=== PATIENT | female | born 1990 | race African-American/Black ===

== ENCOUNTER 2016-07-02 14:00 | Emergency (ER) | payer MEDICAID ==
[~2016-07-02] VITALS: Ht 170.2 cm; Wt 86.0 kg
[2016-07-02 14:02] VITALS: BP 122/80; PULSE 73; RESP 16; TEMP 98; O2SAT 99
--- NOTE | 2016-07-02 14:11 | PD ---
Physical Exam Date Seen by Provider: Jul 02, 2016 Time Seen by Provider: 14:09 Narrative 25 YOBF C/O L THROBBING FACIAL PAIN FOR 2 WEEKS. NO D/C,F/C,DENTAL PAIN VSS AWAITING BED PLACEMENT Data Data Last Documented VS Vital Signs Date Time Temp Pulse Resp B/P Pulse Ox O2 Delivery O2 Flow Rate FiO2 07/02/16 14:02 98.0 73 16 122/80 99 MDM Medical Record Reviewed: Yes Supervised Visit with SHELLI: Yes Kirk Leyva Jul 02, 2016 14:10
[2016-07-02] MEDS ORDERED: AZIT500T2 PO (14:18)
[2016-07-02] MEDS ORDERED: IBUP800T23 PO (14:19)
--- NOTE | 2016-07-02 14:19 | PD ---
HPI Chief Complaint: ENT Complaint Time Seen by Provider: 14:17 Travel History International Travel<30 days: No Contact w/Intl Traveler<30days: No Traveled to known affect area: No History of Present Illness HPI 25-year-old female presents emergency Department with complaint of left hip pain 2 weeks. Denies fever, chills, nausea, vomiting. Denies throat pain, nasal congestion, cough. Denies drainage from the ear. Has tried taking Aleve with no relief of symptoms. No known aggravating or relieving factors. Allergies to amoxicillin, penicillin. No other modifying factors or associated signs and symptoms. PFSH Past Medical History Diminished Hearing: No Migraines: Yes ?: Not LMP: MURENA : 1 Para: 1 Social History Alcohol Use: No Tobacco Use: No Substance Use: No Allergies-Medications (Allergen,Severity, Reaction): Coded Allergies: Amoxicillin (Verified Allergy, Severe, HIVES, 07/02/16) Penicillin (Verified Allergy, Severe, 07/02/16) Reported Meds & Prescriptions Reported Meds & Active Scripts Active Ibuprofen 800 Mg Tab 800 Mg PO Q6HR PRN Azithromycin 500 Mg Tab 500 Mg PO DAILY Review of Systems Except as stated in HPI: all other systems reviewed are Neg Physical Exam Narrative GENERAL: Well-nourished, well-developed patient, in no acute distress; afebrile , nontoxic-appearing SKIN: Warm and dry. No rash. HEAD: Atraumatic. Normocephalic. EYES: Pupils equal and round at 3 mm with brisk reaction. No scleral icterus. No injection or drainage. PERRLA. EARS: Bilateral pinnae and external canals appear within normal limits. Left tympanic membranes with erythema , loss of land simms, dullness; without perforation. Right tympanic membrane is without erythema or dullness. ENT: Mucosa pink and moist. Pharynx without erythema, edema or exudates. No uvular edema. No uvular, palatal, or tonsillar deviation. Airway patent. NECK: Trachea midline. No lymphadenopathy. CARDIOVASCULAR: Regular rate and rhythm. No murmur appreciated. RESPIRATORY: No accessory muscle use. Clear to auscultation. Breath sounds equal bilaterally. GASTROINTESTINAL: Abdomen soft, non-tender, nondistended. Hepatic and splenic margins not palpable. Bowel sounds are active 4 quadrants. MUSCULOSKELETAL: No obvious deformities. No clubbing. No cyanosis. No edema. NEUROLOGICAL: Awake and alert. Oriented 3. No obvious cranial nerve deficits. Motor grossly within normal limits. Normal speech. Moves all extremities. 5/5 strength to all extremities. PSYCHIATRIC: Appropriate mood and affect; insight and judgment normal. Data Data Last Documented VS Vital Signs Date Time Temp Pulse Resp B/P Pulse Ox O2 Delivery O2 Flow Rate FiO2 07/02/16 14:02 98.0 73 16 122/80 99 MDM Medical Decision Making Medical Screen Exam Complete: Yes Emergency Medical Condition: Yes Medical Record Reviewed: Yes Differential Diagnosis Cerumen impaction, foreign body, otitis media, otitis externa Narrative Course 25-year-old female physical exam consistent with left otitis media. She is afebrile and nontoxic-appearing. Denies fever, chills, nausea, vomiting. Allergies to amoxicillin. Azithromycin ibuprofen prescribed for home. Patient verbalizes understanding and agreement with treatment plan. Patient is medically cleared and stable for discharge. Discussed reasons to return to the emergency department. Instructed patient to follow up with primary care provider. Patient agrees with treatment plan. The patients vital signs are stable and the patient is stable for outpatient follow-up and treatment. Patient discharged home, stable and in no acute distress. Diagnosis Primary Impression: Left otitis media Qualified Code: H66.92 - Left otitis media, unspecified chronicity, unspecified otitis media type Referrals: Primary Care Physician Patient Instructions: General Instructions, Otitis Media (ED) Departure Forms: Tests/Procedures, Work Release Enter return to work date: Jul 03, 2016 Additional Instructions: Take antibiotics as prescribed and complete full course Ibuprofen or Tylenol as directed and as needed to reduce pain and fever Avoid getting water in the ears Do not put anything in the ears; including Q-tips Follow-up with your primary care provider Return to the emergency department immediately with worsening of symptoms Med/Other Pt SpecificInfo: Prescription(s) given Scripts Ibuprofen 800 Mg [id number] Mg PO Q6HR PRN (PAIN) #30 TAB Ref 0 Prov:Brianna Ramirez 07/02/16 Azithromycin 500 Mg [id number] Mg PO DAILY #5 TAB Ref 0 Prov:Brianna Ramirez 07/02/16 Disposition: DISCHARGE HOME Condition: Stable Brianna Ramirez Jul 02, 2016 14:19
== END 2016-07-02 14:40 | disposition home or self-care (01) ==
LOC: NEPK 14:00
DX: H66.92 Otitis media, unspecified, left ear (principal); M25.552 Pain in left hip
CPT/HCPCS: 99282

== ENCOUNTER 2016-11-13 11:00 | Emergency (ER) | payer BC, MEDICAID ==
[~2016-11-13] VITALS: Ht 170.2 cm; Wt 100.0 kg
[~2016-11-13 11:00] MED LIST: AZIT500T2 PO; IBUP800T23 PO
[2016-11-13 11:02] VITALS: BP 115/77; PULSE 80; RESP 20; TEMP 98.2; O2SAT 97
[2016-11-13] MEDS ORDERED: AZIT500T2 PO (12:55)
[2016-11-13] MEDS ORDERED: IBUP800T23 PO (12:55)
[2016-11-13] MEDS ORDERED: MOME17I EACH NARE (12:56)
--- NOTE | 2016-11-13 12:56 | PD ---
HPI Chief Complaint: Headache Time Seen by Provider: 12:46 Travel History International Travel<30 days: No Contact w/Intl Traveler<30days: No Traveled to known affect area: No History of Present Illness HPI 26-year-old female presents to the emergency Department with complaint of nasal congestion, sinus pressure, headache, cough since Sunday. Denies sore throat or ear pain. Denies fever, vomiting. Has been taking an dqdu-jjh-rkehqlu medication for multisymptom relief without relief of symptoms. Allergies to amoxicillin and penicillin. Has no other medical complaints. Symptoms are mild in severity. No other modifying factors or associated signs and symptoms. PFSH Past Medical History Diminished Hearing: No Migraines: Yes ?: Not LMP: 2 WEEKS AGO : 1 Para: 1 Social History Alcohol Use: No Tobacco Use: No Substance Use: No Allergies-Medications (Allergen,Severity, Reaction): Coded Allergies: amoxicillin (Unverified Allergy, Severe, HIVES, 11/07/16) penicillin G (Unverified Allergy, Severe, 11/07/16) Reported Meds & Prescriptions Reported Meds & Active Scripts Active Nasonex Nasal Mckenzie (Mometasone Furoate) 50 Mcg/Act Naspr 2 Mckenzie EACH NARE DAILY PRN Ibuprofen 800 Mg Tab 800 Mg PO Q6HR PRN Azithromycin 500 Mg Tab 500 Mg PO DAILY Ibuprofen 800 Mg Tab 800 Mg PO Q6HR PRN Azithromycin 500 Mg Tab 500 Mg PO DAILY Review of Systems Except as stated in HPI: all other systems reviewed are Neg Physical Exam Narrative GENERAL: Well-nourished, well-developed [place] female patient, in no acute distress; afebrile, nontoxic-appearing SKIN: Warm and dry. No rash. HEAD: Atraumatic. Normocephalic. Frontal and maxillary sinus tenderness on palpation. EYES: Pupils equal and round at 3 mm with brisk reaction. No scleral icterus. No injection or drainage. PERRLA. ENT: Mucosa pink and moist. Oropharynx without erythema, exudates, tonsillar edema. No uvular edema. No uvular, palatal, or tonsillar deviation. Airway patent. EARS: Bilateral pinnae and external canals appear within normal limits. Bilateral tympanic membranes without erythema, dullness or perforation. NECK: Trachea midline. No lymphadenopathy. CARDIOVASCULAR: Regular rate and rhythm. No murmur appreciated. RESPIRATORY: No accessory muscle use. Breath sounds clear and equal bilaterally. No retractions or tachypnea. GASTROINTESTINAL: Obese. MUSCULOSKELETAL: No obvious deformities. No clubbing. No cyanosis. No edema. NEUROLOGICAL: Awake and alert. Oriented 3. No obvious cranial nerve deficits. Motor grossly within normal limits. Normal speech. Moves all extremities. 5/5 strength to all extremities. PSYCHIATRIC: Appropriate mood and affect; insight and judgment normal. Data Data Last Documented VS Vital Signs Date Time Temp Pulse Resp B/P (MAP) Pulse Ox O2 Delivery O2 Flow Rate FiO2 11/13/16 11:02 98.2 80 20 115/77 (90) 97 Room Air Orders Orders Ibuprofen (Motrin) (11/13/16 13:30) [facility] Medical Decision Making Medical Screen Exam Complete: Yes Emergency Medical Condition: Yes Medical Record Reviewed: Yes Differential Diagnosis Sinusitis, upper respiratory infection, viral illness, allergic rhinitis Narrative Course 26-year-old female physical examination consistent with sinusitis. Patient is afebrile and nontoxic-appearing. Denies fever, vomiting. Azithromycin, ibuprofen, Nasonex nasal spray prescribed for home. Instructed patient to follow up with primary care provider. Patient verbalizes understanding and agreement with treatment plan. Patient is medically cleared and stable for discharge. Discussed reasons to return to the emergency department. Patient agrees with treatment plan. The patients vital signs are stable and the patient is stable for outpatient follow-up and treatment. Patient discharged home, stable and in no acute distress. Diagnosis Primary Impression: Sinusitis Qualified Codes: J32.9 - Chronic sinusitis, unspecified Referrals: Primary Care Physician Patient Instructions: General Instructions Departure Forms: Tests/Procedures, Work Release Enter return to work date: Nov 15, 2016 Additional Instructions: Antibiotics as prescribed and complete full course Ibuprofen or Tylenol as instructed and as needed for fever/pain Cdqq-jtc-xlouxhi cough and cold medications as directed and as needed for symptom management Get plenty of sleep/rest Drink plenty of fluids to prevent dehydration; popsicles and Gatorade Use an air humidifier/turn off ceiling fans Follow-up with primary care provider Return immediately to the emergency department with worsening of symptoms Med/Other Pt SpecificInfo: Prescription(s) given Scripts Mometasone Nasal Mckenzie (Nasonex Nasal Mckenzie) 50 Mcg/Act Naspr 2 SPRAY EACH NARE DAILY Y for NASAL CONGESTION, #1 BOTTLE 0 Refills Prov: Rassi,Brianna K EDUCATION RESEARCH ANALYST 11/13/16 Ibuprofen (Ibuprofen) 800 Mg Tab 800 MG PO Q6HR Y for PAIN, #20 TAB 0 Refills Prov: Brianna Ramirez 11/13/16 Azithromycin (Azithromycin) 500 Mg Tab 500 MG PO DAILY for Infection, #5 TAB 0 Refills Prov: Brianna Ramirez 11/13/16 Disposition: 01 DISCHARGE HOME Condition: Stable Brianna Ramirez Nov 13, 2016 12:56
[2016-11-13] MEDS ORDERED: IBUPROFEN 800 MG TAB PO ONE (13:30)
== END 2016-11-13 13:41 | disposition home or self-care (01) ==
LOC: NEPK 11:00
DX: J32.9 Chronic sinusitis, unspecified (principal)
CPT/HCPCS: 99284

== ENCOUNTER 2017-04-30 19:58 | Emergency (ER) | payer BC ==
[~2017-04-30 19:58] MED LIST changes: +IBUP1TAB7 PO; -IBUP800T23 PO; +MOME17I EACH NARE
[2017-04-30 20:00] VITALS: BP 127/72; PULSE 76; RESP 16; TEMP 98.9; O2SAT 99
--- NOTE | 2017-04-30 20:50 | RADRPT ---
EXAM DATE/TIME: 04/30/2017 20:39 [facility] COMPARISON: No previous studies available for comparison. INDICATIONS : Left shoulder pain. Patient woke up with it yesterday. No prior trauma. MEDICAL HISTORY : None. SURGICAL HISTORY : None. ENCOUNTER: Initial ACUITY: 2 days PAIN SCORE: 8/10 LOCATION: Left shoulder. FINDINGS: Multiple view examination of the left shoulder demonstrates no evidence of fracture or dislocation. The glenohumeral and acromioclavicular joints are maintained. There is normal range of motion betwee n internal and external rotation. Bony mineralization is normal. CONCLUSION: Normal examination for a patient of this age. Willy Alford MD on April 30, 2017 at 20:47 Board Certified Radiologist. This report was verified electronically.
[2017-04-30] MEDS ORDERED: IBUP1TAB7 PO (22:06)
[2017-04-30] MEDS ORDERED: CYCL10TA PO (22:06)
--- NOTE | 2017-04-30 22:06 | PD ---
HPI Chief Complaint: Injury Time Seen by Provider: 21:36 Travel History International Travel<30 days: No Contact w/Intl Traveler<30days: No Traveled to known affect area: No History of Present Illness HPI Patient's 26-year-old female presented to the emergency department for evaluation left shoulder pain. Patient states it started 2 days ago, she denies any preceding injury or trauma. She states the pain is tender and worse with movement. Symptom onset was gradual, symptoms are exacerbated again with movement. Somewhat alleviated with rest. She denies any numbness, tingling, weakness in her extremities. She denies a chest pain or shortness of breath. PFSH Past Medical History Medical History: Denies Significant Hx Diminished Hearing: No Migraines: Yes ?: Not : 1 Para: 1 Social History Alcohol Use: No Tobacco Use: No Substance Use: No Allergies-Medications (Allergen,Severity, Reaction): Coded Allergies: amoxicillin (Unverified Allergy, Severe, HIVES, 04/30/17) penicillin G (Unverified Allergy, Severe, 04/30/17) Reported Meds & Prescriptions Reported Meds & Active Scripts Active No Active Prescriptions or Reported Medications Review of Systems Except as stated in HPI: all other systems reviewed are Neg Musculoskeletal: Positive: Myalgias Physical Exam Narrative GENERAL: Overweight, well-developed, alert female. Resting comfortably in no acute distress. SKIN: Warm and dry. HEAD: Normocephalic. EYES: No scleral icterus. No injection or drainage. NECK: Supple, trachea midline. No JVD or lymphadenopathy. CARDIOVASCULAR: Regular rate and rhythm without murmurs, gallops, or rubs. RESPIRATORY: Breath sounds equal bilaterally. No accessory muscle use. GASTROINTESTINAL: Abdomen soft, non-tender, nondistended. MUSCULOSKELETAL: No cyanosis, or edema. Mildly tender to palpation on left anterior and posterior shoulder, left lateral chest wall. BACK: Nontender without obvious deformity. No CVA tenderness. Data Data Last Documented VS Vital Signs Date Time Temp Pulse Resp B/P (MAP) Pulse Ox O2 Delivery O2 Flow Rate FiO2 04/30/17 20:00 98.9 76 16 127/72 (90) 99 Room Air Orders Orders Shoulder, Complete (>2vws) (04/30/17 ) [facility] Medical Decision Making Medical Screen Exam Complete: Yes Emergency Medical Condition: Yes Interpretation(s) Vital Signs Date Time Temp Pulse Resp B/P (MAP) Pulse Ox O2 Delivery O2 Flow Rate FiO2 04/30/17 20:00 98.9 76 16 127/72 (90) 99 Room Air Differential Diagnosis Muscle strain versus muscle spasm versus tendinitis versus other Narrative Course Patient is a 26 over female presenting for evaluation of left shoulder and left lateral rib pain. Patient's vital signs are stable. Patient was encouraged to continue range of motion exercises, take medications as directed, avoid exacerbating activities, avoid bed rest. She was encouraged to follow-up with her primary doctor return to emergency department for any new or worsening symptoms. Patient verbalized understanding of instructions. Patient is stable for discharge. Diagnosis Primary Impression: Muscle strain Additional Impression: Shoulder strain Qualified Codes: S46.912A - Strain of unspecified muscle, fascia and tendon at shoulder and upper arm level, left arm, initial encounter Referrals: Primary Care Physician Patient Instructions: General Instructions, Muscle Spasm (ED), Muscle Strain ( ED) Departure Forms: Tests/Procedures, Work Release Enter return to work date: May 02, 2017 Additional Instructions: Follow-up with your primary doctor Continue range of motion exercises, avoid bed rest, avoid exacerbating activities, take medications as directed, apply warm heat to affected area Return to emergency department for any new or worsening symptoms Med/Other Pt SpecificInfo: Prescription(s) given Scripts Cyclobenzaprine (Flexeril) 10 Mg Tab 10 MG PO TID Y for MUSCLE SPASM, #30 TAB 0 Refills Prov: Linda Dodge 04/30/17 Ibuprofen (Ibuprofen) 800 Mg Tab 800 MG PO Q6HR Y for PAIN, #40 TAB 0 Refills Prov: Linda Dodge 04/30/17 Disposition: 01 DISCHARGE HOME Condition: Stable Linda Dodge Apr 30, 2017 22:06
== END 2017-04-30 22:21 | disposition home or self-care (01) ==
LOC: NEPK 19:58
DX: S46.912A Strain of unspecified muscle, fascia and tendon at shoulder and upper arm level, left arm, initial encounter (principal); X58.XXXA Exposure to other specified factors, initial encounter
CPT/HCPCS: 73030; 99283

== ENCOUNTER 2017-06-28 13:07 | Emergency (ER) | payer BC, OTHER ==
[~2017-06-28] VITALS: Ht 170.2 cm; Wt 105.0 kg
[~2017-06-28 13:07] MED LIST changes: -AZIT500T2 PO; +CYCL10TA PO; -MOME17I EACH NARE
[2017-06-28 13:15] VITALS: BP 121/64; PULSE 83; RESP 16; TEMP 99.1; O2SAT 99
[2017-06-28 17:00] VITALS: BP 108/61; PULSE 80; RESP 18; O2SAT 99
--- NOTE | 2017-06-28 17:05 | PD ---
HPI Chief Complaint: Headache Time Seen by Provider: 17:03 Travel History International Travel<30 days: No Contact w/Intl Traveler<30days: No Traveled to known affect area: No History of Present Illness HPI 26-year-old female came to the emergency room with history of headaches that has been going on for past 2-3 days. Patient points to the front of her head and bitemporally as the location. Patient says that she has history of migraines and when she was in college she is to get it very frequently. It had become better and now lately it seems to be coming back. Patient took ibuprofen that she was prescribed for something else for this headache but it has not helped. No aggravating or relieving factors. Is just there at all times. Some associated nausea but no vomiting. Vital signs are stable. Patient is awake and answering questions appropriately. No radiation of the pain. PFSH Past Medical History Narrative Medical List of her past medical, surgical, social and family history reviewed from the nursing note. Diminished Hearing: No Migraines: Yes : 1 Para: 1 Social History Alcohol Use: No Tobacco Use: No Substance Use: No Allergies-Medications (Allergen,Severity, Reaction): Coded Allergies: amoxicillin (Unverified Allergy, Severe, HIVES, 04/30/17) penicillin G (Unverified Allergy, Severe, 04/30/17) Comments List of her allergies reviewed from the nursing note. Reported Meds & Prescriptions Reported Meds & Active Scripts Active Fioricet (Kvqkiizkrt-Eylaozgenuebx-Wyyvhqcf) 50-300-40 Mg Cap 1 Cap PO Q4H PRN Ibuprofen 800 Mg Tab 800 Mg PO Q6HR PRN Narrative Medication List of her home medications reviewed from the nursing note. Review of Systems Except as stated in HPI: all other systems reviewed are Neg Neurologic: Positive: Headache Physical Exam Narrative GENERAL: Awake, alert, obese, no obvious distress SKIN: Focused skin assessment warm/dry. HEAD: Atraumatic. Normocephalic. EYES: Pupils equal and round. No scleral icterus. No injection or drainage. ENT: No nasal bleeding or discharge. Mucous membranes pink and moist. NECK: Trachea midline. No JVD. Neck is supple. No signs of meningismus CARDIOVASCULAR: Regular rate and rhythm. No murmur appreciated. RESPIRATORY: No accessory muscle use. Clear to auscultation. Breath sounds equal bilaterally. GASTROINTESTINAL: Abdomen soft, non-tender, nondistended. Hepatic and splenic margins not palpable. MUSCULOSKELETAL: No obvious deformities. No clubbing. No cyanosis. No edema. NEUROLOGICAL: Awake and alert. No obvious cranial nerve deficits. Motor grossly within normal limits. Normal speech. PSYCHIATRIC: Appropriate mood and affect; insight and judgment normal. Data Data Last Documented VS Vital Signs Date Time Temp Pulse Resp B/P (MAP) Pulse Ox O2 Delivery O2 Flow Rate FiO2 06/28/17 19:21 06/28/17 18:05 79 18 99 Room Air 06/28/17 13:15 99.1 Orders Orders Complete Blood Count With Diff (06/28/17 17:25) Basic Metabolic Panel (Bmp) (06/28/17 17:25) Ecg Monitoring (06/28/17 17:25) Iv Access Insert/Monitor (06/28/17 17:25) Oximetry (06/28/17 17:25) Sodium Chloride 0.9% Flush (Ns Flush) (06/28/17 17:30) Prochlorperazine Inj (Compazine Inj) (06/28/17 17:30) Sodium Chlor 0.9% 1000 Ml Inj (Ns 1000 M (06/28/17 17:25) Ed Discharge Order (06/28/17 18:46) Labs Laboratory Tests Test 06/28/17 18:05 White Blood Count 9.3 TH/MM3 Red Blood Count 4.91 MIL/MM3 Hemoglobin 13.9 GM/DL Hematocrit 41.5 % Mean Corpuscular Volume 84.6 FL Mean Corpuscular Hemoglobin 28.2 PG Mean Corpuscular Hemoglobin Concent 33.4 % Red Cell Distribution Width 13.8 % Platelet Count 357 TH/MM3 Mean Platelet Volume 8.1 FL Neutrophils (%) (Auto) 52.5 % Lymphocytes (%) (Auto) 36.1 % Monocytes (%) (Auto) 8.8 % Eosinophils (%) (Auto) 2.1 % Basophils (%) (Auto) 0.5 % Neutrophils # (Auto) 4.9 TH/MM3 Lymphocytes # (Auto) 3.4 TH/MM3 Monocytes # (Auto) 0.8 TH/MM3 Eosinophils # (Auto) 0.2 TH/MM3 Basophils # (Auto) 0.0 TH/MM3 CBC Comment DIFF FINAL Differential Comment Blood Urea Nitrogen 11 MG/DL Creatinine 0.60 MG/DL Random Glucose 74 MG/DL Calcium Level 8.8 MG/DL Sodium Level 140 MEQ/L Potassium Level 3.8 MEQ/L Chloride Level 106 MEQ/L Carbon Dioxide Level 27.7 MEQ/L Anion Gap 6 MEQ/L Estimat Glomerular Filtration Rate 146 ML/MIN MDM Medical Decision Making Medical Screen Exam Complete: Yes Emergency Medical Condition: Yes Medical Record Reviewed: Yes Differential Diagnosis Status migrainous, headache NOS Narrative Course 7 PM patient was given medications for headache and IV fluid bolus. I went back and reassessed her and she says she is feeling much better. Blood test results are back and they are within normal limits. Patient will be discharged home. She is comfortable going home. Procedures EKG Prior to Arrival: No Diagnosis Primary Impression: Status migrainosus Referrals: Primary Care Physician 3 days Additional Instructions: Take the medication as per the prescription direction. Stay away from television screen, computer screen, smart phone screens etc. so that he give rest to your eyes and brain. Drink coffee or caffeinated beverages which would help with the headache. Do not drink alcohol, wine, chocolate, cheese which can make migraine headaches worse. Drink lots of fluid. Med/Other Pt SpecificInfo: Prescription(s) given Scripts Mutgmzmbqq-Fincssghqzjhs-Ojzdihxo (Fioricet) 50-300-40 Mg Cap 1 CAP PO Q4H Y for HEADACHE, #15 CAP 0 Refills Prov: Jared Coffey MD 06/28/17 Disposition: DISCHARGE HOME Condition: Stable Jared Coffey MD Jun 28, 2017 17:05
[2017-06-28] MEDS ORDERED: SODIUM CHLOR 0.9% 1000 ML INJ 1,000 ML IV ONE (17:25)
[2017-06-28] MEDS ORDERED: SODIUM CHLORIDE 0.9% FLUSH 10 ML FLUSH IVF PRN (17:30)
[2017-06-28] MEDS ORDERED: PROCHLORPERAZINE INJ 10 MG/2 ML VIAL IVP ONE (17:30)
[2017-06-28 18:05] VITALS: BP 100/58; PULSE 79; RESP 18; O2SAT 99
[2017-06-28 18:29] LABS: AUTOMATED NEUTROPHIL # 4.9 TH/MM3 (1.8-7.7); BASOPHIL % 0.5 % (0.0-2.0); EOSINOPHIL # 0.2 TH/MM3 (0-0.4); EOSINOPHIL % 2.1 % (0.0-4.0); HEMATOCRIT 41.5 % (35.0-46.0); HEMOGLOBIN 13.9 GM/DL (11.6-15.3); LYMPH % 36.1 % (9.0-44.0); LYMPHOCYTE # 3.4 TH/MM3 (1.0-4.8); MEAN CELL VOLUME 84.6 FL (80.0-100.0); MEAN CORPUSCULAR HEMOGLOBIN 28.2 PG (27.0-34.0); MEAN CORPUSCULAR HGB CONC 33.4 % (32.0-36.0); MEAN PLATELET VOLUME 8.1 FL (7.0-11.0); MONO % 8.8 % (0.0-8.0); MONOCYTE # 0.8 TH/MM3 (0-0.9); NEUT % 52.5 % (16.0-70.0); PLATELET COUNT 357 TH/MM3 (150-450); RED BLOOD COUNT 4.91 MIL/MM3 (4.00-5.30); RED CELL DISTRIBUTION WIDTH 13.8 % (11.6-17.2); WHITE BLOOD COUNT 9.3 TH/MM3 (4.0-11.0)
[2017-06-28 18:42] LABS: BICARBONATE 27.7 MEQ/L (21.0-32.0); CALCIUM 8.8 MG/DL (8.5-10.1); CREATININE 0.6 MG/DL (0.50-1.00)
[2017-06-28] MEDS ORDERED: BUTA1CAP PO (18:48)
== END 2017-06-28 19:22 | disposition home or self-care (01) ==
LOC: NEPD 13:07
DX: G43.901 Migraine, unspecified, not intractable, with status migrainosus (principal); Z88.0 Allergy status to penicillin
CPT/HCPCS: 80048; 85025; 96361; 96374; 99284; J0780; J7030